=== PATIENT | female | born 1965 | race Caucasian/White ===

== ENCOUNTER 2019-04-23 22:58 | Emergency (ER) | payer BC ==
[2019-04-23] MEDS ORDERED: Lidocaine 2% VISCOUS* 15 ML UDC PO ONE (23:25)
[2019-04-23] MEDS ORDERED: Al Hydrox/Mg Hydrox/Simet LIQ* 30 ML UDC PO ONE (23:25)
--- NOTE | 2019-04-23 23:33 | ED ---
HPI Chest Pain - HPI Summary HPI Summary: Pt is a 53 y/o F presenting to the ED with a chief complaint of chest pain initially onset around 1900 tonight. She states it came on a little bit after she ate and the pain is in the center of her chest, so she thought it mightve been heartburn, but she took tums and elevated her feet without relief. The pain is intermittent, accompanied by mild nausea and one episode of jaw pain. She denies dizziness, lightheadedness, or diaphoresis. Hx HTN that she takes medication for but ran out of back in January. - History of Current Complaint Chief Complaint: EDChestPainROMI Time Seen by Provider: 04/23/19 23:17 Hx Obtained From: Patient Hx Last Menstrual Period: 05/22/12 Onset/Duration: Started Hours Ago, Still Present Timing: Constant, Lasting Hours Initial Severity: Moderate Current Severity: Moderate Pain Intensity: 6 Pain Scale Used: 0-10 Numeric Chest Pain Location: Mid Sternal Chest Pain Radiates: Yes Chest Pain Radiates To:: Jaw Aggravating Factor(s): Nothing Alleviating Factor(s): Nothing Associated Signs and Symptoms: Positive: Chest Pain, Nausea. Negative: Dizziness, Shortness of Breath, Lightheadedness, Diaphoresis - Allergy/Home Medications Allergies/Adverse Reactions: Allergies Allergy/AdvReac Type Severity Reaction Status Date / Time codeine Allergy Swelling Verified 04/23/19 23:14 Of Face,Lips,& Throat Home Medications: Home Medications NK [No Home Medications Reported] 04/23/19 [History Confirmed 04/23/19] PMH/Surg Hx/FS Hx/Imm Hx Previously Healthy: Yes Endocrine/Hematology History: Denies: Hx Diabetes Cardiovascular History: Reports: Hx Hypertension, Other Cardiovascular Problems/ Disorders - MITRAL VALVE PROLAPSE Denies: Hx Pacemaker/ICD Respiratory History: Denies: Hx Asthma History: Denies: Hx Renal Disease Sensory History: Denies: Hx Hearing Aid Psychiatric History: Denies: Hx Panic Disorder - Surgical History Surgery Procedure, Year, and Place: spleen removed and c section Infectious Disease History: No Infectious Disease History: Denies: Traveled Outside the [place] in Last 30 Days - Family History Known Family History: Negative: Diabetes - Social History Alcohol Use: Rare Hx Substance Use: No Substance Use Type: Reports: None Hx Tobacco Use: Yes - 4 YEARS Smoking Status (MU): Heavy Every Day Tobacco Smoker Review of Systems Negative: Skin Diaphoresis Positive: Chest Pain Positive: Nausea Neurological: Negative - dizziness, lightheadedness All Other Systems Reviewed And Are Negative: Yes Physical Exam - Summary Physical Exam Summary: Appearance: Well-appearing, Well-nourished, lying in bed comfortably Skin: Warm, dry, no obvious rash Eyes: sclera anicteric, no conjunctival pallor ENT: mucous membranes moist, pharynx appears normal Neck: Supple, nontender Respiratory: Clear to auscultation, no signs of respiratory distress Cardiovascular: Normal S1, S2. No murmurs. Normal distal pulses in tibial and radial bilaterally. Abdomen: Soft, mild epigastric tenderness without peritoneal signs, normal active bowel sounds present Musculoskeletal: Normal, Strength/ROM Intact Neurological: A&Ox3, awake and alert, mentation is normal, speech is fluent and appropriate Psychiatric: affect is normal, does not appear anxious or depressed Triage Information Reviewed: Yes Vital Signs On Initial Exam: Initial Vitals Temp Pulse Resp BP Pulse Ox 99.5 F 85 16 194/109 98 04/23/19 22:58 04/23/19 22:58 04/23/19 22:58 04/23/19 22:58 04/23/19 22:58 Vital Signs Reviewed: Yes Procedures - Sedation Patient Received Moderate/Deep Sedation with Procedure: No Diagnostics - Vital Signs Vital Signs Temp Pulse Resp BP Pulse Ox 04/23/19 22:58 99.5 F 85 16 194/109 98 - Laboratory Result Diagrams: 04/23/19 23:37 04/23/19 23:37 Lab Statement: Any lab studies that have been ordered have been reviewed, and results considered in the medical decision making process. - EKG 2301 Cardiac Rate: NL - 85bpm EKG Rhythm: Sinus Rhythm ST Segment: Normal Ectopy: None Summary of EKG Findings: EKG at 2301 shows NSR at 85 BPM, P waves, QRS complex, and T waves are within normal limits, T waves and intervals are normal, no ischemic changes. This is a normal EKG. ED physician has reviewed and interpreted this EKG. Re-Evaluation - Re-Evaluation 1st re-eval Re-Evaluation Time: 01:37 Change: Improved Comment: Pt is pain free. 2nd re-eval Re-Evaluation Time: 03:08 Change: Improved Comment: Sx resolved. Pt comfortable going home. Chest Pain Course/Dx - Course Course Of Treatment: Pt is a 53 y/o F presenting to the ED with a chief complaint of chest pain initially onset around 1900 tonight. The pain is intermittent, accompanied by mild nausea and one episode of jaw pain. She denies dizziness, lightheadedness, or diaphoresis. Hx HTN that she takes medication for but ran out of back in January. Pt's physical exam shows mild epigastric tenderness without peritoneal signs. EKG at 2301 shows NSR at 85 BPM , P waves, QRS complex, and T waves are within normal limits, T waves and intervals are normal, no ischemic changes. This is a normal EKG. ED physician has reviewed and interpreted this EKG. Pts history is quite atypical for angina and her only risk factors are age and htn. Her HEART score is 2. Plan will be serial trop x 2, treat for suspected GI source of pain. Pt's 2nd troponin is 0.01. She is comfortable being d/c'ed as of 307. She will be going home with dx of chest pain. - Diagnoses Provider Diagnoses: Chest pain Discharge ED - Sign-Out/Discharge Documenting (check all that apply): Patient Departure - Discharge Plan Condition: Stable Disposition: HOME Patient Education Materials: Chest Pain (ED) Referrals: Saman Vasquez MD [Primary Care Provider] - 5 Days - Billing Disposition and Condition Condition: STABLE Disposition: Home - Attestation Statements Document Initiated by Radhaibnickolas: Yes Documenting Scribe: Leonor Rich Provider For Whom Denis is Documenting (Include Credential): Adam Valderrama MD. Scribe Attestation: Leonor Argueta scribed for Adam Valderrama MD. on 04/27/19 at 0332. Scribe Documentation Reviewed: Yes Provider Attestation: The documentation as recorded by the Leonor mares accurately reflects the service I personally performed and the decisions made by me, Adam Valderrama MD. Status of Scribe Document: Viewed
[2019-04-23 23:50] LABS: ABS Basophils 0.1 10^3/ul (0-0.2); ABS Eosinophils 0.4 10^3/ul (0-0.6); ABS Lymphocytes 2.5 10^3/ul (1.0-4.8); ABS Monocytes 1.4 10^3/ul (0-0.8); ABS Neutrophils 14.1 10^3/ul (1.5-7.7); Hematocrit 46 % (35-47); Hemoglobin 15.9 g/dL (12.0-16.0); Lymphocyte % 13.6 %; Mean Corpuscular HGB Conc 34 g/dL (31-36); Mean Corpuscular Hemoglobin 34 pg (27-31); Mean Corpuscular Volume 100 fL (80-97); Mean Platelet Volume 7.6 fL (7.4-10.4); Nucleated Red Blood Cells % 0.1; Platelet Count 449 10^3/uL (150-450); Red Blood Count 4.66 10^6 /uL (3.70-4.87); Red Cell Distribution Width 13 % (10-15); White Blood Count 18.6 10^3/uL (3.5-10.8)
[2019-04-23 23:54] LABS: INR 0.88 (0.82-1.09)
[2019-04-24 00:06] LABS: Albumin/Globulin Ratio 1.3 (1-3); BUN/Creatinine Ratio 20.5 (8-20); Calcium 9.6 mg/dL (8.6-10.3); EGFR African American 100.9 (>60); EGFR Non-African American 83.4 (>60); Globulin 3.2 g/dL (2-4); Potassium 3.5 mmol/L (3.5-5.0); Total Bilirubin 0.5 mg/dL (0.2-1.0); Total Protein 7.2 g/dL (6.4-8.9)
[2019-04-24 00:07] LABS: Troponin I 0.01 ng/mL (<0.03)
[2019-04-24 03:29] VITALS: BP 148/86
== END 2019-04-24 03:30 | disposition home or self-care (01) ==
LOC: ED 22:58
DX: R07.9 Chest pain, unspecified (principal); I10 Essential (primary) hypertension; I34.1 Nonrheumatic mitral (valve) prolapse; F17.200 Nicotine dependence, unspecified, uncomplicated; Z79.899 Other long term (current) drug therapy; Z88.5 Allergy status to narcotic agent
CPT/HCPCS: 36415; 80053; 84484; 85025; 85610; 93005; 99283; A9270-GY

== ENCOUNTER 2019-09-12 19:49 | Emergency (ER) | payer BC ==
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
[2019-09-12 20:02] VITALS: BP 189/108
[2019-09-12] MEDS ORDERED: Cyclobenzaprine TAB* 10 MG PO ONE (20:22)
== END 2019-09-12 20:44 | disposition home or self-care (01) ==
LOC: UCEAST 19:49
DX: M54.5 Low back pain (principal); M51.36 Other intervertebral disc degeneration, lumbar region; M47.816 Spondylosis without myelopathy or radiculopathy, lumbar region; Z88.5 Allergy status to narcotic agent; F17.200 Nicotine dependence, unspecified, uncomplicated
CPT/HCPCS: 72100; 81003; 99212; A9270-GY; G0463